=== PATIENT | female | born 1985 | race Caucasian/White ===

== ENCOUNTER 2022-05-12 04:00 | Inpatient (IN) ==
[2022-05-12] MEDS ORDERED: miSOPROStoL 25 MCG TABLET PO PRN (05:30)
[2022-05-12] MEDS ORDERED: Oxytocin 30 UNIT/503 ML BAG IVC SCH ×2 (05:30→09:15)
[2022-05-12] MEDS ORDERED: Metoclopramide 10 MG/2 ML VIAL IVP PRN ×2 (05:37→22:41)
[2022-05-12] MEDS ORDERED: Naloxone 0.4 MG/ML INJ IVP PRN ×2 (05:37→10:09)
[2022-05-12] MEDS ORDERED: Famotidine 20 MG/2 ML VIAL IVP PRN (05:37)
[2022-05-12 06:14] LABS: Bacteria,Urine Few per hpf (None-Few); Bilirubin,Urine Negative (Negative); Blood,Urine Negative (Negative); Clarity,Urine Clear (Clear); Color,Urine Colorless (Yellow); Glucose,Urine (UA) 50 mg/dL (Normal); Ketones,Urine Negative (Negative); Leukocyte Esterase,Urine Small (Negative); Mucus,Urine Few per lpf (None-Few); Nitrite,Urine Negative (Negative); Protein,Urine Negative (Neg-Trace); RBC,Urine 0-3 per hpf (0-3); Specific Gravity,Urine 1.007 (1.010-1.025); Squamous Epithelial Cell,Urine Moderate per hpf (None-Few); Urobilinogen,Urine Normal (Normal)
[2022-05-12 06:36] LABS: Protein/Creatinine Ratio,Urine 0.19 mg/mg (0.00-0.20)
[2022-05-12 06:44] LABS: Basophils # 0.1 K/mcL (0.0-0.2); Basophils % 0.4 %; Eosinophils # 0.1 K/mcL (0.0-0.6); Eosinophils % 0.7 %; Hematocrit 37.1 % (35.3-44.9); Hemoglobin 11.8 g/dL (11.5-15.4); Immature Granulocytes % 0.7 % (0-4); Lymphocytes # 2.7 K/mcL (0.6-4.6); Lymphocytes % 22.2 %; Mean Corpuscular HGB Conc 31.8 g/dL (31.6-35.5); Mean Corpuscular Hemoglobin 26.6 pg (28.0-33.3); Mean Corpuscular Volume 83.7 fL (83.0-100.0); Monocytes # 0.9 K/mcL (0.0-1.3); Monocytes % 7.2 %; Neutrophils # 8.3 K/mcL (1.6-8.9); Platelet Count 263 K/mcL (140-400); Red Blood Count 4.43 M/mcL (3.82-4.97); Red Cell Distribution Width 16.6 % (11.5-14.5); Segmented Neutrophils % 68.8 %
[2022-05-12 06:59] LABS: Alanine Aminotransferase 10 Units/L (7-52); Aspartate Amino Transferase 13 Units/L (13-39); BUN/Creatinine Ratio 11 (6-26); Blood Urea Nitrogen 8 mg/dL (6-20); Lactate Dehydrogenase 110 Units/L (140-271); Uric Acid 5.2 mg/dL (2.3-7.6)
[2022-05-12] MEDS ORDERED: Ringers Solution, Lactated 1,000 ML ONE ×2 (09:38→18:34)
[2022-05-12] MEDS ORDERED: EPHEDrine 50 MG/ML VIAL IVP PRN (10:09)
[2022-05-12] MEDS ORDERED: Ropivacaine/PF 0.2% 20 ML VIAL EP ONE (10:09)
[2022-05-12] MEDS ORDERED: *HR* FentaNYL (PF) 100 MCG/2 ML VIAL EP ONE (10:09)
[2022-05-12] MEDS ORDERED: Ondansetron 4 MG/2 ML VIAL IVP PRN ×2 (10:09→22:41)
[2022-05-12] MEDS ORDERED: Ringers Solution, Lactated 1,000 ML IVC SCH ×2 (10:30→22:41)
[2022-05-12] MEDS ORDERED: Ropivacaine/PF 0.2% 20 ML VIAL ONE (10:37)
[2022-05-12] MEDS: Epidural Premix (fent/bupiv) 110 ML EP SCH ×2 (11:00→17:44)
[2022-05-12] MEDS ORDERED: Methylergonovine 0.2 MG/ML AMPUL IM ONE (11:08)
[2022-05-12] MEDS ORDERED: Ringer's Solution, Lactated 250 ML IV.SOLN IVC SCH (12:00)
[2022-05-12] MEDS ORDERED: Ropivacaine/PF 0.5% 30 ML VIAL ONE ×2 (15:51→15:52)
[2022-05-12] MEDS ORDERED: *HR* FentaNYL (PF) 100 MCG/2 ML VIAL ONE (15:51)
[2022-05-12] MEDS ORDERED: Terbutaline 1 MG/ML VIAL SQ ONE (16:21)
[2022-05-12] MEDS ORDERED: *HR* Oxytocin 10 UNIT/ML VIAL ONE (18:11)
[2022-05-12] MEDS ORDERED: Acetaminophen IV 1,000 MG/100 ML BAG IVPB ONE (18:34)
[2022-05-12] MEDS ORDERED: Chloroprocaine 3%/PF 20 ML VIAL INFILT ONE (18:37)
[2022-05-12] MEDS ORDERED: *HR* Morphine Sulfate/PF 10 MG/10 ML AMPUL ONE (18:43)
[2022-05-12] MEDS ORDERED: *HR* HYDROMORPHONE 2 MG/ML VIAL ONE ×2 (18:48→19:12)
[2022-05-12] MEDS ORDERED: Ondansetron 4 MG/2 ML VIAL ONE ×2 (19:01→19:11)
[2022-05-12] MEDS ORDERED: *HR* Succinylcholine 200 MG/10 ML VIAL IVP ONE (19:04)
[2022-05-12] MEDS ORDERED: *HR* Promethazine 25 MG/ML VIAL IM ONE (19:40)
[2022-05-12] MEDS ORDERED: OXYTOCIN/RINGERS LACTATE 10 UNIT/166.6 ML BAG IVC ONE (22:41)
[2022-05-12] MEDS ORDERED: Rho Immune Globulin 1,500 UNIT SYRINGE IM ONE (22:41)
[2022-05-12] MEDS ORDERED: Simethicone 80 MG TAB.CHEW PO PRN (22:41)
[2022-05-12] MEDS ORDERED: *HR* HYDROmorphone PCA *PREMADE* 20 MG/1MG/ML (20mL) PCA VIAL IVC PRN (22:41)
[2022-05-12] MEDS ORDERED: Oxytocin 30 UNIT/503 ML BAG IVC ONE (23:49)
[2022-05-12] MEDS: *HR* OxyCODONE Immed Rel 5 MG TABLET PO PRN (23:55)
[2022-05-12] MEDS: Acetaminophen 325 MG TABLET PO SCH (23:56)
[2022-05-13] MEDS: *HR* Enoxaparin 60 MG/0.6 ML SYRINGE SQ SCH ×3 (02:32→20:23)
[2022-05-13] MEDS: cephALEXin 500 MG CAPSULE PO SCH ×4 (02:32→20:22)
[2022-05-13] MEDS: *HR* OxyCODONE Immed Rel 5 MG TABLET PO PRN ×5 (03:56→23:10)
[2022-05-13 04:19] LABS: Basophils % 0.1 %; Hematocrit 31.5 % (35.3-44.9); Immature Granulocytes % 0.6 % (0-4); Lymphocytes # 1.3 K/mcL (0.6-4.6); Lymphocytes % 7.8 %; Mean Corpuscular HGB Conc 32.1 g/dL (31.6-35.5); Mean Corpuscular Hemoglobin 27.1 pg (28.0-33.3); Mean Corpuscular Volume 84.5 fL (83.0-100.0); Mean Platelet Volume 10.2 fL (9.4-12.4); Monocytes # 0.9 K/mcL (0.0-1.3); Monocytes % 5.5 %; Neutrophils # 13.9 K/mcL (1.6-8.9); Platelet Count 218 K/mcL (140-400); Red Blood Count 3.73 M/mcL (3.82-4.97); Red Cell Distribution Width 16.3 % (11.5-14.5); White Blood Count 16.2 K/mcL (4.3-11.1)
[2022-05-13 04:22] LABS: Hemoglobin 10.1 g/dL (11.5-15.4)
[2022-05-13] MEDS: Acetaminophen 325 MG TABLET PO SCH ×3 (06:00→22:15)
[2022-05-13] MEDS: Prenatal Vit/FA 1 EACH TABLET PO SCH (09:39)
[2022-05-13] MEDS ORDERED: *HR* OxyCODONE Immed Rel 5 MG TABLET PO STA (09:43)
[2022-05-13] MEDS ORDERED: Zonisamide 100 MG CAPSULE PO SCH (21:00)
[2022-05-13] MEDS ORDERED: ZONISAMIDE 100 MG PO SCH (21:00)
[2022-05-14] MEDS: Acetaminophen 325 MG TABLET PO SCH ×3 (02:33→11:36)
[2022-05-14] MEDS: *HR* OxyCODONE Immed Rel 5 MG TABLET PO PRN ×2 (04:02→08:43)
[2022-05-14 07:15] VITALS: BP 104/79; PULSE 87; TEMP 98.4; O2SAT 97
[2022-05-14] MEDS: Prenatal Vit/FA 1 EACH TABLET PO SCH (08:41)
[2022-05-14] MEDS: cephALEXin 500 MG CAPSULE PO SCH (08:41)
[2022-05-14] MEDS: *HR* Enoxaparin 60 MG/0.6 ML SYRINGE SQ SCH (08:47)
== END 2022-05-14 14:40 | disposition home or self-care (01) | DRG 787 ==
LOC: 1NENULAB 04:21 → 1NENUOBS 22:28
PROVIDERS: ADMIT Student in an Organized Health Care Education/Training Program; ATTEND Student in an Organized Health Care Education/Training Program

== ENCOUNTER 2022-05-19 15:12 | Inpatient (IN) ==
[2022-05-19] MEDS: *HR* OxyCODONE Immed Rel 5 MG TABLET PO PRN (19:19)
[2022-05-19] MEDS ORDERED: Naloxone 0.4 MG/ML INJ IVP PRN (19:34)
[2022-05-19 20:55] LABS: Basophils % 0.4 %; Eosinophils # 0.1 K/mcL (0.0-0.6); Eosinophils % 1.1 %; Hematocrit 29.3 % (35.3-44.9); Hemoglobin 9.1 g/dL (11.5-15.4); Immature Granulocytes % 0.9 % (0-4); Lymphocytes # 1.8 K/mcL (0.6-4.6); Mean Corpuscular HGB Conc 31.1 g/dL (31.6-35.5); Mean Corpuscular Hemoglobin 26.6 pg (28.0-33.3); Mean Corpuscular Volume 85.7 fL (83.0-100.0); Mean Platelet Volume 9.3 fL (9.4-12.4); Monocytes # 0.6 K/mcL (0.0-1.3); Monocytes % 6.7 %; Neutrophils # 5.7 K/mcL (1.6-8.9); Platelet Count 364 K/mcL (140-400); Red Blood Count 3.42 M/mcL (3.82-4.97); Red Cell Distribution Width 16.6 % (11.5-14.5); Segmented Neutrophils % 68.9 %; White Blood Count 8.2 K/mcL (4.3-11.1)
[2022-05-19 21:02] LABS: Prothrombin Time 11.6 Seconds (9.4-12.1)
[2022-05-19] MEDS: Ondansetron ODT 4 MG TAB.RAPDIS SL PRN (21:22)
[2022-05-19] MEDS: atenoloL 25 MG TABLET PO SCH (22:07)
[2022-05-19] MEDS: Zonisamide 100 MG CAPSULE PO SCH (22:08)
[2022-05-19] MEDS: Sulfamethoxazole/Trimeth DS 1 EACH TABLET PO SCH (22:08)
[2022-05-19] MEDS ORDERED: Metoclopramide 10 MG/2 ML VIAL IVP ONE (22:10)
[2022-05-20] MEDS: *HR* OxyCODONE Immed Rel 5 MG TABLET PO PRN ×6 (00:16→20:30)
[2022-05-20] MEDS: Nystatin POWDER 30 GM BOTTLE TP PRN ×3 (00:16→21:00)
[2022-05-20 05:58] LABS: Basophils % 0.5 %; Eosinophils # 0.2 K/mcL (0.0-0.6); Eosinophils % 1.7 %; Hematocrit 28.1 % (35.3-44.9); Hemoglobin 8.6 g/dL (11.5-15.4); Immature Granulocytes % 0.7 % (0-4); Lymphocytes # 2.2 K/mcL (0.6-4.6); Lymphocytes % 25.3 %; Mean Corpuscular HGB Conc 30.6 g/dL (31.6-35.5); Mean Corpuscular Hemoglobin 26.5 pg (28.0-33.3); Mean Corpuscular Volume 86.5 fL (83.0-100.0); Mean Platelet Volume 9.9 fL (9.4-12.4); Monocytes # 0.7 K/mcL (0.0-1.3); Monocytes % 7.6 %; Neutrophils # 5.7 K/mcL (1.6-8.9); Platelet Count 378 K/mcL (140-400); Red Blood Count 3.25 M/mcL (3.82-4.97); Red Cell Distribution Width 16.6 % (11.5-14.5); Segmented Neutrophils % 64.2 %; White Blood Count 8.8 K/mcL (4.3-11.1)
[2022-05-20] MEDS ORDERED: Iopamidol - 370 500 ML MLS IVP ONE (08:43)
[2022-05-20] MEDS ORDERED: Ringers Solution, Lactated 1,000 ML ONE (08:48)
[2022-05-20] MEDS ORDERED: Iopamidol - 370 500 ML MLS PO ONE (08:57)
[2022-05-20] MEDS ORDERED: Ringers Solution, Lactated 1,000 ML IVC SCH (09:00)
[2022-05-20] MEDS ORDERED: Piperacillin/Tazobactam 3.375 GM in 0.9 % Sodium Chloride Mini Bag 100 ML IVPB SCH (09:00)
[2022-05-20] MEDS: Prenatal Vit/FA 1 EACH TABLET PO SCH (09:01)
[2022-05-20] MEDS: Sennosides 8.6 MG TABLET PO SCH (09:01)
[2022-05-20] MEDS: atenoloL 25 MG TABLET PO SCH (09:01)
[2022-05-20] MEDS: Cyanocobalamin (B-12) 1,000 MCG TABLET PO SCH (09:01)
[2022-05-20 11:17] LABS: Basophils # 0.1 K/mcL (0.0-0.2); Basophils % 0.6 %; Eosinophils # 0.1 K/mcL (0.0-0.6); Eosinophils % 1.4 %; Hematocrit 31.4 % (35.3-44.9); Hemoglobin 9.8 g/dL (11.5-15.4); Immature Granulocytes % 1.1 % (0-4); Lymphocytes # 1.6 K/mcL (0.6-4.6); Lymphocytes % 18.3 %; Mean Corpuscular HGB Conc 31.2 g/dL (31.6-35.5); Mean Corpuscular Hemoglobin 26.9 pg (28.0-33.3); Mean Corpuscular Volume 86.3 fL (83.0-100.0); Mean Platelet Volume 8.8 fL (9.4-12.4); Monocytes # 0.5 K/mcL (0.0-1.3); Monocytes % 5.8 %; Neutrophils # 6.4 K/mcL (1.6-8.9); Platelet Count 408 K/mcL (140-400); Red Blood Count 3.64 M/mcL (3.82-4.97); Red Cell Distribution Width 16.5 % (11.5-14.5); Segmented Neutrophils % 72.8 %; White Blood Count 8.8 K/mcL (4.3-11.1)
[2022-05-20] MEDS ORDERED: Lidocaine/EPI 1:100k 2% 20 ML VIAL INFILT ONE (18:52)
[2022-05-20] MEDS: Zonisamide 100 MG CAPSULE PO SCH (20:31)
[2022-05-20] MEDS: Sulfamethoxazole/Trimeth DS 1 EACH TABLET PO SCH (20:31)
[2022-05-20] MEDS: Piperacillin/Tazobactam 3.375 GM in 0.9 % Sodium Chloride Mini Bag 100 ML IVPB SCH (20:31)
[2022-05-21] MEDS: *HR* OxyCODONE Immed Rel 5 MG TABLET PO PRN ×5 (00:36→22:10)
[2022-05-21] MEDS: Piperacillin/Tazobactam 3.375 GM in 0.9 % Sodium Chloride Mini Bag 100 ML IVPB SCH ×3 (05:09→21:07)
[2022-05-21] MEDS: atenoloL 25 MG TABLET PO SCH (07:50)
[2022-05-21] MEDS: Sennosides 8.6 MG TABLET PO SCH (07:50)
[2022-05-21] MEDS: Cyanocobalamin (B-12) 1,000 MCG TABLET PO SCH (07:50)
[2022-05-21] MEDS: Sulfamethoxazole/Trimeth DS 1 EACH TABLET PO SCH ×3 (07:50→21:11)
[2022-05-21] MEDS: Prenatal Vit/FA 1 EACH TABLET PO SCH (07:50)
[2022-05-21 07:54] LABS: Basophils % 0.3 %; Eosinophils # 0.1 K/mcL (0.0-0.6); Eosinophils % 1.5 %; Hematocrit 28.5 % (35.3-44.9); Immature Granulocytes % 1.1 % (0-4); Lymphocytes # 1.7 K/mcL (0.6-4.6); Lymphocytes % 18.2 %; Mean Corpuscular HGB Conc 31.6 g/dL (31.6-35.5); Mean Corpuscular Hemoglobin 26.9 pg (28.0-33.3); Mean Corpuscular Volume 85.3 fL (83.0-100.0); Monocytes # 0.6 K/mcL (0.0-1.3); Monocytes % 6.3 %; Neutrophils # 6.8 K/mcL (1.6-8.9); Platelet Count 373 K/mcL (140-400); Red Blood Count 3.34 M/mcL (3.82-4.97); Red Cell Distribution Width 16.6 % (11.5-14.5); Segmented Neutrophils % 72.6 %; White Blood Count 9.3 K/mcL (4.3-11.1)
[2022-05-21] MEDS: Ondansetron ODT 4 MG TAB.RAPDIS SL PRN ×2 (09:30→12:05)
[2022-05-21] MEDS ORDERED: Acetaminophen IV 1,000 MG/100 ML BAG IVPB ONE (11:49)
[2022-05-21] MEDS ORDERED: Iopamidol - 370 500 ML MLS IVP ONE (20:27)
[2022-05-21] MEDS: Zonisamide 100 MG CAPSULE PO SCH (21:10)
[2022-05-21] MEDS: Nystatin POWDER 30 GM BOTTLE TP PRN (21:11)
[2022-05-22] MEDS: *HR* OxyCODONE Immed Rel 5 MG TABLET PO PRN ×5 (02:31→21:29)
[2022-05-22] MEDS: Piperacillin/Tazobactam 3.375 GM in 0.9 % Sodium Chloride Mini Bag 100 ML IVPB SCH ×3 (04:10→21:27)
[2022-05-22] MEDS: atenoloL 25 MG TABLET PO SCH (09:22)
[2022-05-22] MEDS: Cyanocobalamin (B-12) 1,000 MCG TABLET PO SCH (09:22)
[2022-05-22] MEDS: Sulfamethoxazole/Trimeth DS 1 EACH TABLET PO SCH ×2 (09:23→21:33)
[2022-05-22] MEDS: Sennosides 8.6 MG TABLET PO SCH (09:23)
[2022-05-22] MEDS: Prenatal Vit/FA 1 EACH TABLET PO SCH (09:23)
[2022-05-22] MEDS: Ondansetron ODT 4 MG TAB.RAPDIS SL PRN (11:27)
[2022-05-22] MEDS: Zonisamide 100 MG CAPSULE PO SCH (21:29)
[2022-05-23] MEDS: *HR* OxyCODONE Immed Rel 5 MG TABLET PO PRN ×5 (01:53→20:40)
[2022-05-23 04:31] LABS: Hematocrit 28.1 % (35.3-44.9); Hemoglobin 8.9 g/dL (11.5-15.4); Mean Corpuscular HGB Conc 31.7 g/dL (31.6-35.5); Mean Corpuscular Volume 85.2 fL (83.0-100.0); Platelet Count 399 K/mcL (140-400); Red Cell Distribution Width 16.7 % (11.5-14.5); White Blood Count 8.5 K/mcL (4.3-11.1)
[2022-05-23] MEDS: Piperacillin/Tazobactam 3.375 GM in 0.9 % Sodium Chloride Mini Bag 100 ML IVPB SCH ×2 (07:51→16:41)
[2022-05-23] MEDS: Sennosides 8.6 MG TABLET PO SCH (08:12)
[2022-05-23] MEDS: Sulfamethoxazole/Trimeth DS 1 EACH TABLET PO SCH ×2 (08:12→20:40)
[2022-05-23] MEDS: atenoloL 25 MG TABLET PO SCH (08:12)
[2022-05-23] MEDS: Prenatal Vit/FA 1 EACH TABLET PO SCH (08:12)
[2022-05-23] MEDS: Cyanocobalamin (B-12) 1,000 MCG TABLET PO SCH (08:12)
[2022-05-23] MEDS ORDERED: Iopamidol - 370 500 ML MLS IVP ONE (09:07)
[2022-05-23] MEDS: Nystatin POWDER 30 GM BOTTLE TP PRN (10:12)
[2022-05-23] MEDS: Zonisamide 100 MG CAPSULE PO SCH (20:40)
[2022-05-24] MEDS: Piperacillin/Tazobactam 3.375 GM in 0.9 % Sodium Chloride Mini Bag 100 ML IVPB SCH ×2 (00:33→08:03)
[2022-05-24] MEDS: *HR* OxyCODONE Immed Rel 5 MG TABLET PO PRN ×3 (03:14→14:16)
[2022-05-24] MEDS: polyethylene glycoL 3350 17 GM POWD.PACK PO SCH ×2 (03:14→11:27)
[2022-05-24 06:02] VITALS: BP 105/69; PULSE 72; TEMP 98.4; O2SAT 97
[2022-05-24] MEDS: atenoloL 25 MG TABLET PO SCH (08:04)
[2022-05-24] MEDS: Cyanocobalamin (B-12) 1,000 MCG TABLET PO SCH (08:04)
[2022-05-24] MEDS: Sulfamethoxazole/Trimeth DS 1 EACH TABLET PO SCH (08:04)
[2022-05-24] MEDS: Prenatal Vit/FA 1 EACH TABLET PO SCH (08:04)
[2022-05-24] MEDS: Sennosides 8.6 MG TABLET PO SCH (08:04)
[2022-05-24] MEDS: Ondansetron ODT 4 MG TAB.RAPDIS SL PRN (14:16)
== END 2022-05-24 16:00 | disposition home or self-care (01) | DRG 776 ==
LOC: 1NENUOBS → 1NENUPED 05-21 18:33 → 1NENUOBS 05-22 17:27
PROVIDERS: ADMIT Student in an Organized Health Care Education/Training Program; ATTEND Obstetrics & Gynecology